=== PATIENT | male | born 1970 | race Caucasian/White ===

== ENCOUNTER 2016-08-14 13:24 | Emergency (ER) | payer MEDICARE, MEDICAID ==
[~2016-08-14] VITALS: Ht 167.6 cm; Wt 88.5 kg
[2016-08-14 13:51] VITALS: BP 117/85
[2016-08-14] MEDS ORDERED: HYDROcodone-ACET 5/325MG TAB PO ONE (15:45)
== END 2016-08-14 16:11 | disposition home or self-care (01) ==
LOC: ER 13:24
DX: S13.4XXA Sprain of ligaments of cervical spine, initial encounter (principal); E78.5 Hyperlipidemia, unspecified; I10 Essential (primary) hypertension; Z86.73 Personal history of transient ischemic attack (TIA), and cerebral infarction without residual deficits; V49.59XA Passenger injured in collision with other motor vehicles in traffic accident, initial encounter; Y93.89 Activity, other specified; Y99.9 Unspecified external cause status; Y92.410 Unspecified street and highway as the place of occurrence of the external cause
CPT/HCPCS: 72125

== ENCOUNTER 2021-10-27 07:02 | Inpatient (IN) | payer MEDICAID, MEDICARE, OTHER ==
[~2021-10-27] VITALS: Ht 167.6 cm; Wt 83.0 kg
[2021-10-27 07:43] LABS: Basophils # (auto) 0.1 10 ^3/uL (0-0.2); Basophils % (auto) 2.1 % (0.0-2.0); Eosinophils # (auto) 0.1 10 ^3/uL (0-0.8); Eosinophils % (auto) 2.1 % (0.0-7.0); Hematocrit 28.1 % (41.0-53.0); Hemoglobin 8.9 g/dL (13.5-17.5); Lymphocytes # (auto) 1.1 10 ^3/uL (0.4-5.4); Lymphocytes % (auto) 23.8 % (10.0-50.0); Mean Corpuscular Hemoglobin 25.3 pg (28.0-32.0); Mean Corpuscular Hgb Conc. 31.8 g/dL (32.0-36.0); Mean Corpuscular Volume 79.7 fL (80.0-100.0); Monocytes # (auto) 0.3 10 ^3/uL (0-1.3); Monocytes % (auto) 5.9 % (0.0-12.0); Neutrophils # (auto) 3.1 10 ^3/uL (1.6-8.6); Neutrophils % (auto) 66.1 % (37.0-80.0); Nucleated Red Blood Cells % 0.1 %; Red Blood Cells 3.52 10^6/uL (4.5-5.90); Red Cell Distribution Width 16.2 % (11.8-14.3); White Blood Cell 4.8 10^3/uL (4.4-10.8)
[2021-10-27 08:06] LABS: Calcium 8.3 mg/dL (8.5-10.1)
[2021-10-27 08:12] LABS: Albumin 3.4 g/dL (3.4-5.0); BUN/Creatinine Ratio 3.4; Bilirubin, Total 0.3 mg/dL (0.2-1.0); Total Protein 7.1 g/dL (6.4-8.2)
[2021-10-27] MEDS ORDERED: hydrALAZINE HCL 20 MG/ML VL IV ONE (11:30)
[2021-10-27] MEDS ORDERED: NITROGLYCERIN 0.4 MG SL TAB SL ONE (12:00)
[2021-10-27] MEDS ORDERED: ASPirin 325 MG TAB PO ONE (12:00)
[2021-10-27] MEDS ORDERED: METOPROLOL TARTRATE 25 MG TAB PO ONE (15:30)
[2021-10-27] MEDS ORDERED: MORPHINE SULFATE INJ 2 MG/ml SYRG IV PRN ×2 (18:30)
[2021-10-27] MEDS ORDERED: NITROGLYCERIN 0.2MG/HR TOPICAL PATCH TD ONE (18:30)
[2021-10-27] MEDS ORDERED: NITROGLYCERIN 0.4 MG SL TAB SL PRN (18:30)
[2021-10-27] MEDS ORDERED: ONDANSETRON HCL 4 MG/2 ML VIAL IV PRN (18:30)
[2021-10-27 20:06] LABS: Cholesterol 173 mg/dL (< 200)
[2021-10-27 20:08] LABS: HDL Cholesterol 80 mg/dL (40-59); LDL Cholesterol 81 mg/dL (< 100); Triglycerides 52 mg/dL (< 150)
[2021-10-28] MEDS: hydrALAZINE HCL 20 MG/ML VL IV PRN ×3 (01:09→16:35)
[2021-10-28 01:53] VITALS: BP 168/68
[2021-10-28] MEDS ORDERED: PNEUMOCOCCAL VACC POLYS 25 MCG/0.5 ML VIAL IM ONE (02:30)
[2021-10-28 05:00] VITALS: BP 142/88
[2021-10-28] MEDS ORDERED: FIN5T PO (05:00)
[2021-10-28] MEDS ORDERED: COLL1TAB PO (05:00)
[2021-10-28] MEDS ORDERED: METO-289 PO ×3 (05:00→15:52)
[2021-10-28] MEDS ORDERED: HYDR-4298 PO (05:00)
[2021-10-28] MEDS ORDERED: FOLI1TAB6 PO (05:00)
[2021-10-28] MEDS ORDERED: [UNRECOGNIZED DRUG - CODE] PO (05:00)
[2021-10-28] MEDS ORDERED: SENN1TAB14 PO (05:00)
[2021-10-28] MEDS ORDERED: SEVE800T10 PO (05:00)
[2021-10-28] MEDS ORDERED: ALLO100T PO (05:00)
[2021-10-28] MEDS ORDERED: CLOP75TA70 PO (05:00)
[2021-10-28] MEDS ORDERED: NIFE90TA49 PO (05:00)
[2021-10-28] MEDS ORDERED: COEN100C37 PO (05:00)
[2021-10-28] MEDS ORDERED: FERR1TAB36 PO (05:00)
[2021-10-28] MEDS ORDERED: CYAN-17 PO (05:00)
[2021-10-28] MEDS ORDERED: TAMS0.4C36 PO (05:00)
[2021-10-28] MEDS ORDERED: SIMV10TA84 PO (05:00)
[2021-10-28 05:44] LABS: Potassium 4.5 mmol/L (3.5-5.1)
[2021-10-28 05:50] LABS: Albumin 3.4 g/dL (3.4-5.0); Calcium 8.6 mg/dL (8.5-10.1); Eosinophils # (auto) 0.1 10 ^3/uL (0-0.8); Monocytes # (auto) 0.4 10 ^3/uL (0-1.3); Neutrophils # (auto) 3.1 10 ^3/uL (1.6-8.6)
[2021-10-28 05:53] LABS: Basophils # (auto) 0 10 ^3/uL (0-0.2); Basophils % (auto) 0.6 % (0.0-2.0); Bilirubin, Total 0.3 mg/dL (0.2-1.0); Eosinophils % (auto) 2.2 % (0.0-7.0); Hematocrit 27.2 % (41.0-53.0); Hemoglobin 8.9 g/dL (13.5-17.5); Lymphocytes # (auto) 1.7 10 ^3/uL (0.4-5.4); Lymphocytes % (auto) 30.9 % (10.0-50.0); Mean Corpuscular Hgb Conc. 32.7 g/dL (32.0-36.0); Mean Corpuscular Volume 79.5 fL (80.0-100.0); Monocytes % (auto) 8.2 % (0.0-12.0); Neutrophils % (auto) 58.1 % (37.0-80.0); Red Blood Cells 3.42 10^6/uL (4.5-5.90); Red Cell Distribution Width 15.7 % (11.8-14.3); Total Protein 6.8 g/dL (6.4-8.2); White Blood Cell 5.4 10^3/uL (4.4-10.8)
[2021-10-28] MEDS ORDERED: SODIUM CHL 0.9% 1000 ML BAG XX ONE (07:00)
[2021-10-28 08:55] VITALS: BP 171/94
[2021-10-28 13:00] VITALS: BP 182/95
[2021-10-28] MEDS ORDERED: NIFEdipine ER 30 MG TAB PO ONE (15:45)
[2021-10-28 16:47] VITALS: BP 198/110
[2021-10-28 18:40] VITALS: BP 160/93
[2021-10-28] MEDS ORDERED: METOPROLOL SUCCINATE XL 50 MG TAB PO ONE (19:00)
[2021-10-28] MEDS ORDERED: hydrALAZINE HCL 25 MG TAB PO ONE (19:00)
[2021-10-28] MEDS ORDERED: EPOETIN ALFA-EPBX 10,000 UNIT/1ML VIAL SC ONE (21:00)
[2021-10-28] MEDS ORDERED: hydrALAZINE HCL 25 MG TAB PO SCH (22:00)
[2021-10-29] MEDS ORDERED: NIFEdipine ER 30 MG TAB PO SCH (10:00)
== END 2021-10-28 21:41 | disposition home or self-care (01) | DRG 280 ==
LOC: ER 07:02 → TELE 18:23 → TELE-WESTW 23:46
PROVIDERS: ADMIT Registered Nurse; ATTEND Internal Medicine Geriatric Medicine
PROC: 5A1D70Z Performance of Urinary Filtration, Intermittent, Less than 6 Hours Per Day (ICD-10-PCS; principal; 2021-10-28)
PROC: 3E0234Z Introduction of Serum, Toxoid and Vaccine into Muscle, Percutaneous Approach (ICD-10-PCS; 2021-10-28)
DX: I21.4 Non-ST elevation (NSTEMI) myocardial infarction (principal); N18.6 End stage renal disease; I16.1 Hypertensive emergency; D63.1 Anemia in chronic kidney disease; E66.9 Obesity, unspecified; Z20.822 Contact with and (suspected) exposure to COVID-19; E78.5 Hyperlipidemia, unspecified; Z79.899 Other long term (current) drug therapy; Z86.73 Personal history of transient ischemic attack (TIA), and cerebral infarction without residual deficits; Z99.2 Dependence on renal dialysis; Z23 Encounter for immunization; Z68.29 Body mass index [BMI] 29.0-29.9, adult
CPT/HCPCS: 36415; 70450; 71045; 80053; 80061; 82306; 83036; 83880; 83970; 84100; 84484; 85025; 87081; 87340; 90935; 93005; 93306; 96374; G0378